=== PATIENT | female | born 1960 | race African-American/Black ===

== ENCOUNTER 2024-07-01 12:50 | Emergency (ER) | payer BC, SELFPAY ==
[2024-07-01 12:52] VITALS: BP 155/110
[2024-07-01 13:18] LABS: Hemoglobin 11.8 g/dL (12.0-16.0); Mean Corp Hgb Conc. 30.3 g/dL (33.0-37.0); Mean Corpuscular Hgb 22.4 pg (27.0-31.0); Mean Corpuscular Volume 74.1 fL (81.0-99.0); Mean Platelet Volume 9.8 fL (7.4-10.4); Platelet Count 214 10^3/uL (130-400); Red Blood Cell Count 5.26 10^6/uL (4.20-5.40); Red Cell Dist. Width 14.9 % (11.5-14.5); White Blood Cell Count 3.7 10^3/uL (4.8-10.8)
[2024-07-01 13:23] LABS: PT 14.7 Sec (11.4-14.6)
[2024-07-01 13:26] LABS: ALT (SGPT) 26 U/L (0-35); AST (SGOT) 24 U/L (14-36); Alkaline Phosphatase 84 U/L (38-126); Blood Urea Nitrogen 11 mg/dl (7-17); Calcium 10.6 mg/dl (8.4-10.2); Carbon Dioxide 31 mmol/L (22-30); Chloride 104 mmol/L (98-107); Glucose 101 mg/dl (70-99); Potassium 3.8 mmol/L (3.5-5.1); Sodium 139 mmol/L (135-145); Total Bilirubin 0.4 mg/dl (0.2-1.3); Total Protein 7.7 g/dl (6.3-8.2); eGFR > 60.00
[2024-07-01 13:43] LABS: Troponin I 0.015 ng/ml
--- NOTE | 2024-07-01 14:42 | ED.GENMED ---
History of Present Illness
<JEANNE Rodgers - Last Filed: 07/01/24 20:10>
General
Chief Complaint: Chest Pain
Source: patient
Exam Limitations: none
Time Seen by Provider: 07/01/24 14:18
Nursing documentation reviewed up to this point in time: agreed with except (Triage note reports' tearing chest pain' patient reports 'pressure' off and on for the past 4 days at night)
History of Present Illness
History of Present Illness:
63 yr. old female presents to the ER for evaluation. Patient reports for the past 4 to 5 days while sleeping at night she wakes up and she has' tightness ' in her chest. This has been occurring intermittently.
She denies any radiation denies any sustained nausea vomiting sweating. She is a very limited historian. 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 She has no pain now.
Patient is a very limited historian. She hands me a medical card that states her primary care provider is listed as primary [facility] (JONNIE Prajapati). I did contact the office however they have limited history and reports she has had multiple
cancellations.
She tells me she had' a clot in her leg that was removed in [place].' PCP has no records of that she is not aware the hospital
Past History
<JEANNE Rodgers - Last Filed: 07/01/24 20:10>
Past History
ED Past Medical History: None
ED Past Surgical History: None
Social History
Tobacco: Non-smoker
Alcohol: None
Personal: Single
Living: with family
Employment: Employed
Review of Systems
<JEANNE Rodgers - Last Filed: 07/01/24 20:10>
Review of Systems
Allergies reviewed?: Yes
All Other Systems: ROS reviewed and negative except as documented in HPI and ROS
Constitutional: Reports no symptoms; Denies fever, fatigue or chills
Respiratory: Reports no symptoms
Cardiac: Reports chest pain (chest pain at night)
ABD/GI: Reports no symptoms
: Reports no symptoms
Musculoskeletal: Reports no symptoms
Neurological: Reports no symptoms
Psychiatric: Reports no symptoms
Phy Exam
<JEANNE Rodgers - Last Filed: 07/01/24 20:10>
General Physical Exam
General Presentation: no apparent distress
General age: appears stated age
General Skin: warm and dry
General Habitus: normal
General Mental: alert
General Hydration: appears well hydrated
Cardiovascular Exam
Cardiovascular Exam: regular rate/rhythm, no murmur and normal peripheral pulses
Pulmonary Exam
Pulmonary Exam: lungs clear and no respiratory distress
Neurological Exam
Neurological Exam: alert and oriented x3
Musculoskeletal Exam
Musculoskeletal Exam: full ROM
Skin Exam
Skin Exam: normal color and warm/dry
Psychiatric Exam
Psychiatric Exam: normal mood/affect
Scores
<JEANNE Rodgers - Last Filed: 07/01/24 20:10>
Heart Score for Chest Pain Patients
STEMI patient?: Not applicable
Course
<JEANNE Rodgers - Last Filed: 07/01/24 20:10>
Orders/Labs/Results
Orders:
Orders
07/01/24 12:54
EKG [Electrocardiogram (*1)] Urgent
Reason for Study: Chest Pain
EKG- Treatment ONCE
07/01/24 13:02
Complete Blood Count/With Diff Urgent
Comprehensive Metabolic Panel Urgent
Manual Differential Urgent
Prothrombin Time Urgent
Troponin I Urgent
07/01/24 14:42
Chest [CR Chest - 2 Views ] Urgent
Comment:
Reason For Exam: cp
07/01/24 14:57
CT Chest PE Study Urgent
Comment:
Reason For Exam: cp
07/01/24 15:57
Troponin I Urgent
Abnormal Lab Results
07/01/24
13:02
WBC 3.7 L 10^3/uL
(4.8-10.8)
Hgb 11.8 L g/dL
(12.0-16.0)
MCV 74.1 L fL
(81.0-99.0)
MCH 22.4 L pg
(27.0-31.0)
MCHC 30.3 L g/dL
(33.0-37.0)
RDW 14.9 H %
(11.5-14.5)
Abs Neuts (Manual) 1.1 L 10^3/uL
(1.4-6.5)
Segmented Neutrophils 30 L %
(42-75)
Lymphocytes (Manual) 54 H %
(20-51)
PT 14.7 H Sec
(11.4-14.6)
Carbon Dioxide 31 H mmol/L
(22-30)
Glucose 101 H mg/dl
(70-99)
Calcium 10.6 H mg/dl
(8.4-10.2)
07/01/24 13:02
07/01/24 13:02
Vital Signs
Initial and Last Documented VS:
Initial Vital Signs
Temp Pulse Resp BP Pulse Ox
98.7 F 77 17 155/110 99
07/01/24 12:52 07/01/24 12:52 07/01/24 12:52 07/01/24 12:52 07/01/24 12:52
Last Documented Vital Signs
Temp Pulse Resp BP Pulse Ox
98.7 F 52 14 144/86 97
07/01/24 12:52 07/01/24 17:45 07/01/24 17:45 07/01/24 17:44 07/01/24 17:44
Commissary Worker consulted with Physician
Commissary Worker consulted with physician?: Yes
Name of Physician Consulted: Na
<Charly Monzon MD - Last Filed: 07/01/24 19:22>
Orders/Labs/Results
Orders:
Orders
07/01/24 12:54
EKG [Electrocardiogram (*1)] Urgent
Reason for Study: Chest Pain
EKG- Treatment ONCE
07/01/24 13:02
Complete Blood Count/With Diff Urgent
Comprehensive Metabolic Panel Urgent
Manual Differential Urgent
Prothrombin Time Urgent
Troponin I Urgent
07/01/24 14:42
Chest [CR Chest - 2 Views ] Urgent
Comment:
Reason For Exam: cp
07/01/24 14:57
CT Chest PE Study Urgent
Comment:
Reason For Exam: cp
07/01/24 15:57
Troponin I Urgent
Abnormal Lab Results
07/01/24
13:02
WBC 3.7 L 10^3/uL
(4.8-10.8)
Hgb 11.8 L g/dL
(12.0-16.0)
MCV 74.1 L fL
(81.0-99.0)
MCH 22.4 L pg
(27.0-31.0)
MCHC 30.3 L g/dL
(33.0-37.0)
RDW 14.9 H %
(11.5-14.5)
Abs Neuts (Manual) 1.1 L 10^3/uL
(1.4-6.5)
Segmented Neutrophils 30 L %
(42-75)
Lymphocytes (Manual) 54 H %
(20-51)
PT 14.7 H Sec
(11.4-14.6)
Carbon Dioxide 31 H mmol/L
(22-30)
Glucose 101 H mg/dl
(70-99)
Calcium 10.6 H mg/dl
(8.4-10.2)
07/01/24 13:02
07/01/24 13:02
Vital Signs
Initial and Last Documented VS:
Initial Vital Signs
Temp Pulse Resp BP Pulse Ox
98.7 F 77 17 155/110 99
07/01/24 12:52 07/01/24 12:52 07/01/24 12:52 07/01/24 12:52 07/01/24 12:52
Last Documented Vital Signs
Temp Pulse Resp BP Pulse Ox
98.7 F 52 14 144/86 97
07/01/24 12:52 07/01/24 17:45 07/01/24 17:45 07/01/24 17:44 07/01/24 17:44
<JEANNE Rodgers - Last Filed: 07/01/24 20:10>
MDM/Problems Addressed
MDM/Problems Addressed:
As documented patient is a 63-year-old female who presents to the ER for evaluation of chest pain. She reports chest pain is intermittent and wakes her up in the middle the night and then she is able to go back to sleep. It is not associate with
shortness of breath nausea vomiting diaphoresis. Please note that triage note reports tearing chest pain patient denies. She presents awake alert no acute distress. She does have a family doctor in [facility] and has paperwork for a
nuclear stress test which is scheduled for July 21.
She did mention a clot in her leg that was removed in May but it was very poor story and I am not able to obtain any information because she is not even aware of the name of the hospital that she had this procedure in. There is no obvious
swelling on exam to lower extremity she is in no acute distress lungs are clear she has been asymptomatic here in the ER. I did 2 cardiac troponins which were negative and because she is very limited historian CAT scan was done to rule out PE which
was negative for PE dissection.
Patient evaluated physician will try oral PPI as patient reports when she lays down she does feel the pain. She has a follow-up with a family doctor and nuclear stress test as scheduled.
<JEANNE Rodgers - Last Filed: 07/01/24 20:10>
*Radiology
Radiology exam reviewed: radiology read reviewed
*Pulse Oximetry
Patient hypoxic: no
*EKG
Interpreted by ED Provider?: Yes
Comparison EKG: no changes
Heart Rate: 66
Rate: normal
Rhythm: sinus
Ischemia: no ischemia
*Critical Care Note
Total Time (30-74mins, 75-104mins- exclusive of procedures): Not Applicable
ED Attending Note
<JEANNE Rodgers - Last Filed: 07/01/24 20:10>
-
Portions of this chart may have been created with voice recognition software.� Occasional wrong word or��sound alike� substitutions may have occurred due to the inherent limitations of voice recognition software.
<Charly Monzon MD - Last Filed: 07/01/24 19:22>
ED Attending Note
Patient seen and examined by attending physician: Yes
ED Attending Note:
I have seen and evaluated the patient with a [id number] encounter. I have spoken to the advance practicer provider and involved in the medical history, the physical exam, medical decision making.
Evaluation and management service: agree unless noted differently below.
Results interpretation: agree unless noted differently below.
Focused HPI: 63-year-old female with no reported chronic issues presents to the emergency department for evaluation of chest pain. Patient reports symptoms have been intermittent for the past few days. She says that she will wake up at night with
'tightness' in her chest�'like a muscle pain in my chest.' She says that they usually last for few minutes and then goes away and she goes back to sleep. She has not had any shortness of breath. She denies any nausea, vomiting. No palpitations.
She denies any other complaints. She denies any symptoms at present.
Physical exam: Hypertensive but otherwise normal vitals. Lungs sound clear. No cardiac rubs gallops or murmurs. No edema.
Medical Decision Makin-year-old female presents for evaluation of atypical chest pain seems to be triggered by lying flat at night. She had lab work sent off including a CBC and a CMP which showed no clinically significant abnormalities. She
had 2 undetectable troponins. She had a chest x-ray and a CTA of the chest which were negative for any acute pathology. Her EKG shows sinus rhythm with no acute ischemic changes. Suspect that this is likely GERD given symptoms worse with lying
flat; pericarditis also consideration. Stable for discharge will trial PPI. Follow-up with PCP as an outpatient. She is comfortable with this plan. All questions answered.
Discharge Plan
Departure
Patient Disposition: Home (Routine Discharge)
Date of Disposition: 07/01/24
Time of Disposition: 17:54
Patient with high blood pressure during this ER visit?: Yes
Condition: Fair
Covid-19: Not Applicable
Discharge Problem:
Chest pain
Instructions: Chest Pain NON-[facility] [employer] City Clerk Follow Up, BLOOD PRESSURE
Prescriptions:
New
pantoprazole [Protonix] 40 mg tablet,delayed release (DR/EC)
40 mg PO DAILY Qty: 14 0RF
Referrals:
NONE,* [Family Provider] -
Activity Restrictions/Additional Instructions:
Please follow-up with your family doctor for further reevaluation of symptoms. You may try Protonix daily
Follow-up for your nuclear stress test as scheduled and return if any worsening of symptoms
Interventions
Interventions:
*Risk Screen - Suicide Last Done: 07/01/24 12:53
*General Assessment Last Done: 07/01/24 12:53
*Neglect/Abuse Screening Last Done: 07/01/24 12:53
ED- Fall Risk Assessment Last Done: 07/01/24 14:19
*ED COVID-19 Vaccine History Last Done: 07/01/24 12:53
*Nursing Disposition Last Done: 07/01/24 18:01
ED- Cardiac Assessment Last Done: 07/01/24 14:19
Discharge Date and Time
Discharge Date/Time: 07/01/24 18:23
Print Language: STATELESS
[2024-07-01 14:50] LABS: Absolute Neutrophils -Man Diff 1.1 10^3/uL (1.4-6.5); Atypical Lymphocytes 9 %; Band Neutrophils 0 % (0-3); Eosinophils 1 % (0-6); Lymphocytes 54 % (20-51); Monocytes 6 % (2-9); Segmented Neutrophils 30 % (42-75)
[2024-07-01 14:51] LABS: Normal RBC Morphology No; Platelets Checked Yes
[2024-07-01 14:52] LABS: Acanthocytes FEW; Anisocytosis Slight; Hypochromasia 1+; Ovalocytes 1+; Total Cells Counted 100
[2024-07-01 15:04] VITALS: BMI 30.8
[2024-07-01 16:32] LABS: Troponin I < 0.012 ng/ml
[2024-07-01 17:44] VITALS: BP 144/86
== END 2024-07-01 18:23 | disposition home or self-care (01) ==
LOC: EMR 12:50
PROVIDERS: Emergency Medicine; Nurse Practitioner; EMERGENCY PHYSICIAN Emergency Medicine
DX: R07.89 Other chest pain (principal); R03.0 Elevated blood-pressure reading, without diagnosis of hypertension
CPT/HCPCS: 99285; 71046; 71275; 80053; 84484; 85025; 85610; 93005; Q9967